=== PATIENT | male | born 1960 | race Caucasian/White ===

== ENCOUNTER 2018-01-03 01:15 | Emergency (ER) | payer SELFPAY ==
[~2018-01-03] VITALS: Ht 182.9 cm; Wt 63.5 kg
[2018-01-03 01:15] VITALS: BP 174/107
--- NOTE | 2018-01-03 01:15 | NUR ---
PATIENT BIB [facility] TO ER CHAIR [facility]
--- NOTE | 2018-01-03 01:20 | NUR ---
PATIENT IS A 57 Y/O MALE BIB PD WHO PRESENTS TO THE ED FOR PRE-BOOK. PD STATES THAT HE WAS BROUGHT IN FOR MEDICAL CLEARANCE. PT REPORTS ABD PAIN 5/10 ACHING ABD PAIN THAT DOES NOT RADIATE. PT DENIES CP, SOB, N/V/D. PT AAOX4, RR EVEN/UNLABORED. PT REPOSITIONED FOR COMFORT, BED IN LOWEST POSITION. ER MD DR. ALBARADO NOTIFIED. WILL CONTINUE TO MONITOR.
[2018-01-03 01:38] VITALS: BP 160/95
--- NOTE | 2018-01-03 01:38 | NUR ---
Patient discharged with v/s stable. Written and verbal after care instructions given and explained. Patient verbalized understanding. Police with in custody. All questions addressed prior to discharge. Advised to follow up with PMD.
== END 2018-01-03 01:38 ==
LOC: MED 01:15
DX: Z02.89 Encounter for other administrative examinations (principal)
CPT/HCPCS: 99283

== ENCOUNTER 2021-09-10 17:09 | Emergency (ER) | payer MEDICAID ==
--- NOTE | 2021-09-10 17:29 | NUR ---
CALLED TO TRIAGE NO ANSWER
--- NOTE | 2021-09-10 18:00 | NUR ---
CALLED TO TRIAGE A SECOND TIME NO ANSWER
--- NOTE | 2021-09-10 18:48 | NUR ---
NO ANSWER ON THIRD CALL
--- NOTE | 2021-09-10 18:48 | NUR ---
PATIENT LEFT WITHOUT BEING SEEN BY DR. BERNAL. NO FURTHER CARE PROVIDED FOR PATIENT.
== END 2021-09-10 18:45 | disposition left against medical advice (07) ==
LOC: MED 17:09
DX: Z53.21 Procedure and treatment not carried out due to patient leaving prior to being seen by health care provider (principal)

== ENCOUNTER 2024-03-28 22:03 | Emergency (ER) | payer OTHER, MEDICARE, MEDICAID ==
[~2024-03-28] VITALS: Ht 182.9 cm; Wt 68.0 kg
[2024-03-28 22:20] VITALS: BP 151/101; PULSE 80; RESP 16; TEMP 97.2; O2SAT 93
[2024-03-28 22:58] VITALS: BP 151/101; PULSE 80; RESP 16; TEMP 97.2; O2SAT 98
[2024-03-28] MEDS: HYDROcodone/APAP 5/325 MG 1 TAB TAB PO ONE (23:40)
[2024-03-29] MEDS ORDERED: ACET-8905 PO (02:31)
[2024-03-29] MEDS ORDERED: HYDR-5071 PO (03:43)
== END 2024-03-29 02:55 | disposition home or self-care (01) ==
LOC: MED 22:03
DX: S22.41XA Multiple fractures of ribs, right side, initial encounter for closed fracture (principal); S80.812A Abrasion, left lower leg, initial encounter; M79.651 Pain in right thigh; M54.6 Pain in thoracic spine; J44.9 Chronic obstructive pulmonary disease, unspecified; Z79.899 Other long term (current) drug therapy; V13.4XXA Pedal cycle driver injured in collision with car, pick-up truck or van in traffic accident, initial encounter; Y93.19 Activity, other involving water and watercraft; Y92.410 Unspecified street and highway as the place of occurrence of the external cause; Y99.8 Other external cause status
CPT/HCPCS: 70450; 71250; 72125; 73590; 99284; Q0092